=== PATIENT | male | born 1960 | race Caucasian/White ===

== ENCOUNTER 2018-05-15 07:13 | Outpatient (CLI) | payer OTHER ==
[2018-05-15 11:29] LABS: BUN - BLOOD UREA NITROGEN 20 mg/dL (6-20); CALCIUM 8.7 mg/dL (8.5-10.3); CARBON DIOXIDE - CO2 27 mmol/L (21-32); CHLORIDE 103 mmol/L (101-111); CHOL/HDL RATIO 2.2 (<5.0); CHOLESTEROL 154 mg/dL; GFR - MDRD 77 (>89); GLUCOSE 101 mg/dL (70-100); HDL CHOLESTEROL 70 mg/dL; SODIUM 136 mmol/L (135-145)
[2018-05-15 12:17] LABS: LDL CHOLESTEROL,DIRECT 79 mg/dL; LDLD/HDL RATIO 1.1 (<3.6)
== END 2018-05-15 07:14 | disposition home or self-care (01) ==
LOC: LAB.F 07:13
PROVIDERS: ATTEND Internal Medicine
DX: Z00.00 Encounter for general adult medical examination without abnormal findings (principal); Z12.5 Encounter for screening for malignant neoplasm of prostate
CPT/HCPCS: 36415; 80048; 80061; 83721; 84153

== ENCOUNTER 2020-07-08 08:37 | Day surgery (SDC) | payer OTHER ==
[2020-07-08] MEDS ORDERED: LACTATED RINGERS 1,000 ML IV ONE ×2 (08:55→10:27)
[2020-07-08] MEDS ORDERED: MIDAZOLAM 2 MG/2 ML VIAL ONE ×3 (09:35→09:57)
[2020-07-08] MEDS ORDERED: fentaNYL 250 MCG/5 ML VIAL ONE (09:35)
[2020-07-08 10:44] VITALS: BP 139/92
== END 2020-07-08 08:38 | disposition home or self-care (01) ==
LOC: SDS 08:37
PROVIDERS: ATTEND Surgery
DX: Z12.11 Encounter for screening for malignant neoplasm of colon (principal); Z86.010 Personal history of colon polyps; K64.8 Other hemorrhoids
CPT/HCPCS: 45378; J3010; J7120